=== PATIENT | female | born 1990 ===

== ENCOUNTER 2017-01-30 09:35 | Emergency (ER) | payer SELFPAY ==
[2017-01-30 09:45] VITALS: BP 109/61; PULSE 72; TEMP 98.7; O2SAT 99; BMI 27.4
[2017-01-30] MEDS ORDERED: Albuterol-Ipratrop 3 mg / 0.5 (3 ml) UD INH STA (10:04)
[2017-01-30] MEDS ORDERED: Albuterol-Ipratrop 3 mg / 0.5 (3 ml) UD IH STA (10:04)
--- NOTE | 2017-01-30 10:10 | ED PDOC ---
HPI: SOB/CHF/COPD Time Seen by Provider: 01/30/17 09:40 Chief Complaint (Provider): Cough, shortness of breath History Per: Patient History/Exam Limitations: no limitations Onset/Duration Of Symptoms: Days (x5) Current Symptoms Are (Timing): Still Present Additional Complaint(s): Rebekah Arango is a 26 year old female with a past medical history of asthma who presents to the ED complaining of a cough and shortness of breath, onset 5 days ago. Patient also confirms tactile fever, chest pain with cough, nasal congestion, body aches. Denies numbness and weakness. States using nebulizer without Albuterol. No abd pain, nausea, vomit. PMD: Past Medical History Reviewed: Historical Data, Nursing Documentation, Vital Signs Vital Signs: Last Vital Signs Temp 98.7 F 01/30/17 09:45 Pulse 72 01/30/17 09:45 Resp 12 01/30/17 10:33 BP 109/61 01/30/17 09:45 Pulse Ox 99 01/30/17 11:36 - Medical History PMH: Asthma, Kidney Stones - Surgical History Surgical History: No Surg Hx - Family History Family History: States: Unknown Family Hx - Social History Current smoker - smoking cessation education provided: No Alcohol: Social Drugs: Denies - Home Medications Home Medications: Ambulatory Orders Medication Instructions Recorded Albuterol Sulfate [Proair Hfa] 0.09 mg IH Q6H PRN #2 inh 01/30/17 predniSONE [predniSONE Tab] 20 mg PO BID 5 Days tab 01/30/17 - Allergies Allergies/Adverse Reactions: Allergies Allergy/AdvReac Type Severity Reaction Status Date / Time Penicillins Allergy Verified 01/30/17 10:04 Review of Systems Constitutional: Positive for: Fever (Tactile). Negative for: Weakness ENT: Positive for: Nose Congestion Cardiovascular: Positive for: Chest Pain (On cough) Respiratory: Positive for: Cough, Shortness of Breath, Sputum (White), Wheezing Gastrointestinal: Negative for: Nausea, Vomiting, Abdominal Pain, Diarrhea Musculoskeletal: Negative for: Back Pain, Leg Pain Neurological: Negative for: Weakness, Numbness, Headache, Dizziness Physical Exam - Reviewed Nursing Documentation Reviewed: Yes Vital Signs Reviewed: Yes - Physical Exam Appears: Positive for: Non-toxic, No Acute Distress Head Exam: Positive for: ATRAUMATIC, NORMAL INSPECTION, NORMOCEPHALIC Skin: Positive for: Normal Color, Warm, Dry Eye Exam: Positive for: EOMI, Normal appearance, PERRL ENT: Positive for: Nasal Congestion. Negative for: Pharyngeal Erythema, Tonsillar Exudate Neck: Positive for: Normal, Painless ROM, Supple Cardiovascular/Chest: Positive for: Regular Rate, Rhythm. Negative for: Murmur Respiratory: Positive for: Decreased Breath Sounds, Wheezing (Mild expiratory). Negative for: Accessory Muscle Use Gastrointestinal/Abdominal: Positive for: Normal Exam, Bowel Sounds, Soft. Negative for: Tenderness Back: Positive for: Normal Inspection. Negative for: L CVA Tenderness, R CVA Tenderness, Vertebral Tenderness Extremity: Positive for: Normal ROM. Negative for: Pedal Edema, Calf Tenderness , Deformity Neurologic/Psych: Positive for: Alert, Oriented. Negative for: Motor/Sensory Deficits - ECG ECG: Positive for: Interpreted By Me, Viewed By Me ECG Rhythm: Positive for: Normal QRS, Normal ST Segment, Sinus Rhythm O2 Sat by Pulse Oximetry: 99 (RA) Pulse Ox Interpretation: Normal - Progress ED Course And Treament: 1151: Stable. AAOx3. Tolerated PO. No dyspnea. Fu with pcp. Medical Decision Making Medical Decision Making: Time: 10:04 Initial Impression: URI Initial Plan: --EKG --Urine --Duoneb [3mg/0.5 mg UD] 3 ml INH --Duoneb [3mg/0.5 mg UD] 3 ml IH --Prednisone 60 mg PO --Peak flow pre/post treatment --Reevaluation Scribe Attestation: Documented by Terence Styles, acting as a scribe for Jimi Cobb MD Provider Scribe Attestation: All medical record entries made by the Scribe were at my direction and personally dictated by me. I have reviewed the chart and agree that the record accurately reflects my personal performance of the history, physical exam, medical decision making, and the department course for this patient. I have also personally directed, reviewed, and agree with the discharge instructions and disposition. Disposition - Clinical Impression Clinical Impression: URI (upper respiratory infection), Asthma - Patient ED Disposition Is Patient to be Admitted: No Counseled Patient/Family Regarding: Diagnosis, Need For Followup, Rx Given - Disposition Referrals: [facility] [Outside] - 01/31/17 Disposition: Routine/Home Disposition Time: 11:52 Condition: STABLE Additional Instructions: Return if not better in 3 days. Prescriptions: Albuterol Sulfate [Proair Hfa] 0.09 mg IH Q6H PRN #2 inh PRN Reason: Wheezing predniSONE [predniSONE Tab] 20 mg PO BID 5 Days tab Instructions: Upper Respiratory Infection (ED), Asthma (ED) Forms: [facility] ([place]), [facility] ED School/Work Excuse
[2017-01-30 10:35] VITALS: RESP 12
[2017-01-30] MEDS ORDERED: Albuterol-Ipratrop 3 mg / 0.5 (3 ml) UD ONE (10:50)
--- NOTE | 2017-01-30 12:04 | CARD ---
APPROVED REPORT EKG Measurement Heart [id number] <Conclusion> Normal sinus rhythm with sinus arrhythmia Normal ECG
== END 2017-01-30 12:05 | disposition home or self-care (01) ==
LOC: H.ER 09:35
DX: J06.9 Acute upper respiratory infection, unspecified (principal); J45.909 Unspecified asthma, uncomplicated; Z87.442 Personal history of urinary calculi; Z88.0 Allergy status to penicillin